=== PATIENT | male | born 1945 | race Caucasian/White ===

== ENCOUNTER → 2022-03-14 12:17 | Outpatient (BNVA) | payer MEDICARE, OTHER, SELFPAY | PROVIDERS: PCP Family Medicine; Referring Provider Family Medicine; Visit Provider Specialist | DX: G20 Parkinson's disease (principal); M60.9 Myositis, unspecified; G47.10 Hypersomnia, unspecified | CPT/HCPCS: 82550; 82607; 83516; 83519; 85651; 86140; 86160; 86162; 86235; 86255; 86376; 99205 ==

== ENCOUNTER → 2022-04-12 13:56 | Outpatient (BNVA) | payer MEDICARE, OTHER, SELFPAY | PROVIDERS: PCP Family Medicine; Visit Provider Specialist | DX: G20 Parkinson's disease (principal); M60.9 Myositis, unspecified; G47.10 Hypersomnia, unspecified; R76.8 Other specified abnormal immunological findings in serum | CPT/HCPCS: 99214 ==

== ENCOUNTER → 2022-05-21 09:34 | Outpatient (BNVA) | payer MEDICARE, SELFPAY | PROVIDERS: PCP Family Medicine; Referring Provider Specialist; Visit Provider Internal Medicine Rheumatology | DX: R76.8 Other specified abnormal immunological findings in serum (principal); Z79.899 Other long term (current) drug therapy; M79.10 Myalgia, unspecified site; M25.50 Pain in unspecified joint; I95.1 Orthostatic hypotension; Z86.73 Personal history of transient ischemic attack (TIA), and cerebral infarction without residual deficits; R25.1 Tremor, unspecified | CPT/HCPCS: 36415; 80076; 82085; 82306; 82310; 82550; 82565; 83735; 84132; 85025; 85651; 86140; 86200; 86431; 99204 ==